=== PATIENT | female | born 1960 | race Caucasian/White ===

== ENCOUNTER 2023-01-01 11:37 | Emergency (ER) | payer MEDICAID, OTHER ==
[~2023-01-01] VITALS: Ht 165.1 cm; Wt 86.4 kg
[2023-01-01] MEDS ORDERED: APIX5TAB PO (11:56)
[2023-01-01] MEDS ORDERED: GABA-1216 PO (11:56)
[2023-01-01] MEDS ORDERED: FERR325T27 PO (11:56)
[2023-01-01] MEDS ORDERED: LISI-894 PO (11:56)
[2023-01-01] MEDS ORDERED: VANCOMYCIN 1GM/WATER(PEG/NADA) 200 ML IV ONE (14:30)
[2023-01-01 14:37] LABS: BASOPHILS % (AUTO) 0.3 % (0.0-2.0); EOSINOPHILS % (AUTO) 2.8 % (1.0-6.0); HEMATOCRIT 37.3 % (36-46); LYMPHOCYTES # (AUTO) 1.6 K/uL (1.0-4.8); LYMPHOCYTES % (AUTO) 19.1 % (22.0-44.0); MEAN CORPUSCULAR HEMOGLOBIN 30.9 pg (26.0-34.0); MEAN CORPUSCULAR HGB CONC 32.1 G/dL (31.0-37.0); MEAN CORPUSCULAR VOLUME 96 fL (80-100); MONOCYTES # (AUTO) 0.8 K/uL (0.1-1.0); MONOCYTES % (AUTO) 9.4 % (2.0-9.0); NEUTROPHILS # (AUTO) 5.6 K/uL (1.8-7.7); NEUTROPHILS % (AUTO) 68.4 % (40.0-70.0); PLATELET COUNT (AUTO) 160 K/uL (150-450); RED BLOOD CELL COUNT(AUTO) 3.87 MIL/uL (4.00-5.20); RED CELL DISTRIBUTION WIDTH 14.6 % (11.5-14.5)
[2023-01-01] MEDS ORDERED: ACETAMINOPHEN 325 MG TABLET PO ONE (14:45)
[2023-01-01 14:46] LABS: CALCIUM, TOTAL 9.5 mg/dL (8.8-10.5); CREATININE 1.09 mg/dL (0.60-1.30); POTASSIUM 4.2 mmol/L (3.5-5.1)
[2023-01-01 14:49] LABS: C-REACTIVE PROTEIN QUANT 1.21 mg/dL (0.00-0.30)
[2023-01-01] MEDS ORDERED: KETOROLAC TROMETHAMINE 30 MG/ML VIAL IVP ONE (15:45)
[2023-01-01 15:46] LABS: ERYTHROCYTE SEDIMENTATION RATE 35 MM/HR (0-20)
[2023-01-01] MEDS ORDERED: BACITRACIN 0.9 GM PACKET OINTMENT TP ONE (16:15)
[2023-01-01] MEDS ORDERED: BACTDSB PO (16:25)
[2023-01-01 16:37] VITALS: BP 130/86
== END 2023-01-01 17:36 | disposition home or self-care (01) ==
LOC: EMS 11:39
DX: T81.49XA Infection following a procedure, other surgical site, initial encounter (principal); I48.91 Unspecified atrial fibrillation; I10 Essential (primary) hypertension; Z98.890 Other specified postprocedural states
CPT/HCPCS: 99284; 96365; 96375; 80048; 85025; 85651; 86140; 87040; 36415; 73140; J1885; Q9967

== ENCOUNTER 2023-04-07 10:15 | Emergency (ER) | payer MEDICARE, OTHER ==
[~2023-04-07] VITALS: Ht 165.1 cm; Wt 80.9 kg
[~2023-04-07 10:15] MED LIST: APIX5TAB PO; BACTDSB PO; FERR325T27 PO; GABA-1216 PO; LISI-894 PO
[2023-04-07] MEDS ORDERED: SLOWK8 PO (10:29)
[2023-04-07] MEDS ORDERED: ALBU18HF12 IH (10:29)
[2023-04-07] MEDS ORDERED: CALC-462 PO (10:29)
[2023-04-07] MEDS ORDERED: IPRA3AMP24 NEB (10:29)
[2023-04-07] MEDS ORDERED: ISOS20TA85 PO (10:29)
[2023-04-07] MEDS ORDERED: IPRA4AER IH (10:29)
[2023-04-07] MEDS ORDERED: LISI40TA9 PO (10:29)
[2023-04-07] MEDS ORDERED: FURO20TA4 PO (10:29)
[2023-04-07] MEDS ORDERED: BUDE10.2 IH (10:29)
[2023-04-07] MEDS ORDERED: ARIP15TA27 PO (10:29)
[2023-04-07] MEDS ORDERED: FERR325T23 PO (10:29)
[2023-04-07] MEDS ORDERED: DOCU-412 PO (10:29)
[2023-04-07] MEDS ORDERED: SERT-439 PO (10:29)
[2023-04-07] MEDS ORDERED: FLUT16SP NASAL (10:29)
[2023-04-07] MEDS ORDERED: METO-416 PO (10:29)
[2023-04-07] MEDS ORDERED: GABA-534 PO (10:29)
[2023-04-07] MEDS ORDERED: IBUPROFEN 600 MG TABLET PO ONE (10:45)
[2023-04-07] MEDS ORDERED: HYDROCODONE/ACETAMINOPHEN 5-325 MG TABLET PO ONE (11:45)
[2023-04-07 12:33] VITALS: BP 142/93; PULSE 57; RESP 18; TEMP 97.9
[2023-04-08] MEDS ORDERED: PERCT PO (11:37)
== END 2023-04-07 12:40 | disposition home or self-care (01) ==
LOC: EMS 10:20
DX: S89.92XA Unspecified injury of left lower leg, initial encounter (principal); I10 Essential (primary) hypertension; Z98.890 Other specified postprocedural states; Z88.8 Allergy status to other drugs, medicaments and biological substances; W19.XXXA Unspecified fall, initial encounter; Y93.89 Activity, other specified; Y92.89 Other specified places as the place of occurrence of the external cause; Y99.8 Other external cause status
CPT/HCPCS: 29515; 99284; 73562-TC; 73610-TC; Z7502; Z7610

== ENCOUNTER 2023-04-09 14:18 | Emergency (ER) | payer MEDICARE, OTHER ==
[~2023-04-09] VITALS: Ht 165.1 cm; Wt 80.9 kg
[~2023-04-09 14:18] MED LIST changes: +ALBU18HF12 IH; +ARIP15TA27 PO; -BACTDSB PO; +BUDE10.2 IH; +CALC-462 PO; +DOCU-412 PO; +FERR325T23 PO; -FERR325T27 PO; +FLUT16SP NASAL; +FURO20TA4 PO; -GABA-1216 PO; +GABA-534 PO; +IPRA3AMP24 NEB; +IPRA4AER IH; +ISOS20TA85 PO; -LISI-894 PO; +LISI40TA9 PO; +METO-416 PO; +PERCT PO; +SERT-439 PO; +SLOWK8 PO
[2023-04-09 18:02] VITALS: BP 160/97; PULSE 69; RESP 18; TEMP 97.9
== END 2023-04-09 18:23 | disposition home or self-care (01) ==
LOC: EMS 14:40
DX: S82.892A Other fracture of left lower leg, initial encounter for closed fracture (principal); I48.91 Unspecified atrial fibrillation; I10 Essential (primary) hypertension; Z98.890 Other specified postprocedural states; Z88.8 Allergy status to other drugs, medicaments and biological substances; W22.8XXA Striking against or struck by other objects, initial encounter; Y93.89 Activity, other specified; Y92.89 Other specified places as the place of occurrence of the external cause; Y99.8 Other external cause status
CPT/HCPCS: 99281; Z7502

== ENCOUNTER 2023-04-26 18:11 | Emergency (ER) | payer MEDICARE, OTHER ==
[~2023-04-26] VITALS: Ht 160 cm; Wt 72.7 kg
[2023-04-26 18:15] VITALS: BP 162/99; PULSE 66; RESP 18; TEMP 98.4
[2023-04-26] MEDS ORDERED: METH5SOL3 PO (18:20)
== END 2023-04-26 20:23 | disposition home or self-care (01) ==
LOC: EMS 18:12
DX: B36.9 Superficial mycosis, unspecified (principal); B35.4 Tinea corporis; I10 Essential (primary) hypertension; Z98.890 Other specified postprocedural states; Z88.8 Allergy status to other drugs, medicaments and biological substances
CPT/HCPCS: 99284; Z7502

== ENCOUNTER 2023-04-30 09:37 | Inpatient (IN) | payer MEDICARE, OTHER ==
[~2023-04-30] VITALS: Ht 165.1 cm; Wt 74.5 kg
[~2023-04-30 09:37] MED LIST changes: -FERR325T23 PO; -IPRA4AER IH; +METH5SOL3 PO; -PERCT PO; -SLOWK8 PO
[2023-04-30 10:17] LABS: BASOPHILS % (AUTO) 0.4 % (0.0-2.0); EOSINOPHILS % (AUTO) 1.5 % (1.0-6.0); HEMATOCRIT 35.9 % (36-46); HEMOGLOBIN 11.9 g/dL (12.0-16.0); LYMPHOCYTES # (AUTO) 1.1 K/uL (1.0-4.8); LYMPHOCYTES % (AUTO) 16.6 % (22.0-44.0); MEAN CORPUSCULAR HEMOGLOBIN 31.2 pg (26.0-34.0); MEAN CORPUSCULAR HGB CONC 33.2 G/dL (31.0-37.0); MEAN CORPUSCULAR VOLUME 94 fL (80-100); MONOCYTES # (AUTO) 0.7 K/uL (0.1-1.0); MONOCYTES % (AUTO) 10.5 % (2.0-9.0); NEUTROPHILS # (AUTO) 4.9 K/uL (1.8-7.7); PLATELET COUNT (AUTO) 158 K/uL (150-450); RED BLOOD CELL COUNT(AUTO) 3.82 MIL/uL (4.00-5.20); RED CELL DISTRIBUTION WIDTH 13.6 % (11.5-14.5); WHITE BLOOD COUNT (AUTO) 6.9 K/uL (4.5-11.0)
[2023-04-30 10:25] LABS: CALCIUM, TOTAL 9.4 mg/dL (8.8-10.5); CREATININE 1.23 mg/dL (0.60-1.30); POTASSIUM 4.1 mmol/L (3.5-5.1)
[2023-04-30 10:31] LABS: ALBUMIN 3.4 g/dL (3.4-5.0); BILIRUBIN,TOTAL 0.8 mg/dL (0.1-1.0); TOTAL PROTEIN, SERUM 7.5 g/dL (6.4-8.2)
[2023-04-30 10:34] LABS: LACTIC ACID 0.9 mmol/L (0.4-2.0)
[2023-04-30] MEDS ORDERED: VANCOMYCIN HCL 1 GM in DEXTROSE 5%-WATER 250 ML IV ONE (10:45)
[2023-04-30] MEDS ORDERED: VANCOMYCIN 1GM/WATER(PEG/NADA) 200 ML IV ONE (10:45)
[2023-04-30] MEDS ORDERED: MAGNESIUM HYDROXIDE SUSPENSION 30 ML UDCUP PO PRN (11:45)
[2023-04-30] MEDS ORDERED: ACETAMINOPHEN 325 MG TABLET PO PRN (11:45)
[2023-04-30] MEDS ORDERED: SLOWK8 PO (11:57)
[2023-04-30] MEDS ORDERED: FERR325T23 PO (11:57)
[2023-04-30] MEDS ORDERED: UMEC62.5 IH (11:57)
[2023-04-30] MEDS ORDERED: IPRA4AER IH (11:57)
[2023-04-30 12:30] LABS: COVID AG,FIA SOURCE NASAL SWAB
[2023-04-30 12:51] LABS: SARS-COV2 (COVID) ANTIGEN,FIA Negative (Negative)
[2023-04-30 15:17] LABS: APPEARANCE,URINE CLEAR (CLEAR); BILIRUBIN,URINE NEGATIVE (NEGATIVE); COLOR,URINE LIGHT YELLOW (YELLOW); GLUCOSE, URINE (UA) NEGATIVE (NEGATIVE); KETONES,URINE NEGATIVE (NEGATIVE); LEUKOCYTE ESTERASE ,URINE MODERATE (NEGATIVE); NITRATE,URINE NEGATIVE (NEGATIVE); OCCULT BLOOD,URINE NEGATIVE (NEGATIVE); PH,URINE 5.5 (5.0-8.0); PROTEIN,URINE NEGATIVE (NEGATIVE); SPECIFIC GRAVITIY, URINE 1.012 (1.003-1.030); UROBILINOGEN,URINE <=1.0 mg/dL (<=1.0)
[2023-04-30 15:35] LABS: BACTERIA,URINE Many /HPF (None Seen); RBC,URINE 0-2 /HPF (0-2); SQUAMOUS EPITHELIAL CELL,UR Few /LPF (None Seen)
[2023-04-30] MEDS ORDERED: HEPARIN SODIUM,PORCINE 5,000 UNITS/ML VIAL SQ SCH (16:00)
[2023-04-30 17:02] VITALS: BP 132/84; PULSE 70; RESP 19; TEMP 98.6
[2023-04-30] MEDS ORDERED: HYDROCODONE/ACETAMINOPHEN 5-325 MG TABLET PO PRN (17:45)
[2023-04-30] MEDS: HYDROCODONE/ACETAMINOPHEN 5-325 MG TABLET PO PRN (18:04)
[2023-04-30 20:46] VITALS: BP 110/71; PULSE 73; RESP 20; TEMP 98.3
[2023-04-30] MEDS ORDERED: SODIUM CHLORIDE 0.9% 500 ML IV ONE (20:48)
[2023-04-30] MEDS: APIXABAN 5 MG TABLET PO SCH (20:49)
[2023-04-30] MEDS: METOPROLOL TARTRATE 50 MG TABLET PO SCH (20:49)
[2023-04-30] MEDS: VANCOMYCIN HCL 500 MG in DEXTROSE 5%-WATER 100 ML IV SCH (20:50)
[2023-05-01] VITALS (7 sets, daily range): BP systolic 120–151; BP diastolic 81–95; PULSE 62–83; RESP 17–20; TEMP 97.6–98.4
[2023-05-01] MEDS: HYDROCODONE/ACETAMINOPHEN 5-325 MG TABLET PO PRN ×2 (00:04→10:39)
[2023-05-01] MEDS ORDERED: IPRATROPIUM BROMIDE 0.5 MG/2.5 ML NEB SOLUTION NEB PRN (03:00)
[2023-05-01] MEDS ORDERED: ALBUTEROL SULFATE 2.5 MG/0.5 ML NEB SOLUTION NEB PRN (03:00)
[2023-05-01] MEDS ORDERED: MethylPREDNISolone SOD SUCC 40 MG/ML VIAL IVP SCH (03:30)
[2023-05-01 07:33] LABS: CALCIUM, TOTAL 9.2 mg/dL (8.8-10.5); CREATININE 1.04 mg/dL (0.60-1.30); POTASSIUM 4.3 mmol/L (3.5-5.1)
[2023-05-01] MEDS: VANCOMYCIN HCL 500 MG in DEXTROSE 5%-WATER 100 ML IV SCH ×2 (08:36→20:35)
[2023-05-01] MEDS: FAMOTIDINE 20 MG TABLET PO SCH (08:38)
[2023-05-01] MEDS: METOPROLOL TARTRATE 50 MG TABLET PO SCH ×2 (08:38→20:34)
[2023-05-01] MEDS: APIXABAN 5 MG TABLET PO SCH ×2 (08:38→23:02)
[2023-05-01] MEDS: METHADONE HCL 10 MG TABLET PO SCH (08:38)
[2023-05-01] MEDS: PredniSONE 20 MG TABLET PO SCH (11:28)
[2023-05-02 04:35] VITALS: BP 140/91; PULSE 72; RESP 18; TEMP 97.8
[2023-05-02 07:01] LABS: CALCIUM, TOTAL 9.8 mg/dL (8.8-10.5); CREATININE 0.99 mg/dL (0.60-1.30); POTASSIUM 4.2 mmol/L (3.5-5.1); VANCOMYCIN,RANDOM 16.5 mcg/mL (25.0-50.0)
[2023-05-02 08:05] VITALS: BP 135/92; PULSE 88; RESP 12; TEMP 97.8
[2023-05-02] MEDS: VANCOMYCIN HCL 500 MG in DEXTROSE 5%-WATER 100 ML IV SCH ×2 (08:22→19:59)
[2023-05-02] MEDS: METHADONE HCL 10 MG TABLET PO SCH (08:23)
[2023-05-02] MEDS: PredniSONE 20 MG TABLET PO SCH (08:23)
[2023-05-02] MEDS: FAMOTIDINE 20 MG TABLET PO SCH (08:24)
[2023-05-02] MEDS: APIXABAN 5 MG TABLET PO SCH ×2 (08:24→19:59)
[2023-05-02] MEDS: METOPROLOL TARTRATE 50 MG TABLET PO SCH ×2 (08:24→19:59)
[2023-05-02 08:59] LABS: BASOPHILS % (AUTO) 0.1 % (0.0-2.0); EOSINOPHILS % (AUTO) 0.4 % (1.0-6.0); HEMATOCRIT 36.8 % (36-46); LYMPHOCYTES # (AUTO) 1.6 K/uL (1.0-4.8); LYMPHOCYTES % (AUTO) 13.4 % (22.0-44.0); MEAN CORPUSCULAR HEMOGLOBIN 30.9 pg (26.0-34.0); MEAN CORPUSCULAR HGB CONC 32.5 G/dL (31.0-37.0); MEAN CORPUSCULAR VOLUME 95 fL (80-100); MONOCYTES # (AUTO) 0.8 K/uL (0.1-1.0); MONOCYTES % (AUTO) 6.5 % (2.0-9.0); NEUTROPHILS # (AUTO) 9.4 K/uL (1.8-7.7); NEUTROPHILS % (AUTO) 79.6 % (40.0-70.0); PLATELET COUNT (AUTO) 178 K/uL (150-450); RED BLOOD CELL COUNT(AUTO) 3.88 MIL/uL (4.00-5.20); RED CELL DISTRIBUTION WIDTH 13.5 % (11.5-14.5); WHITE BLOOD COUNT (AUTO) 11.8 K/uL (4.5-11.0)
[2023-05-02] MEDS: HYDROCODONE/ACETAMINOPHEN 5-325 MG TABLET PO PRN ×2 (13:46→20:03)
[2023-05-02 15:18] VITALS: BP 146/62; PULSE 64; RESP 18; TEMP 97.4
[2023-05-02 20:01] VITALS: BP 173/93; PULSE 86; RESP 20; TEMP 98.5
[2023-05-03] VITALS (7 sets, daily range): BP systolic 152–191; BP diastolic 98–122; PULSE 68–84; RESP 18–20; TEMP 97.6–98.2
[2023-05-03] MEDS: HYDROCODONE/ACETAMINOPHEN 5-325 MG TABLET PO PRN ×3 (05:09→21:48)
[2023-05-03 07:02] LABS: CREATININE 0.95 mg/dL (0.60-1.30); POTASSIUM 4.2 mmol/L (3.5-5.1)
[2023-05-03 08:14] LABS: BASOPHILS % (AUTO) 0.1 % (0.0-2.0); HEMATOCRIT 37.3 % (36-46); HEMOGLOBIN 12.1 g/dL (12.0-16.0); LYMPHOCYTES # (AUTO) 2.2 K/uL (1.0-4.8); LYMPHOCYTES % (AUTO) 22.6 % (22.0-44.0); MEAN CORPUSCULAR HEMOGLOBIN 30.7 pg (26.0-34.0); MEAN CORPUSCULAR HGB CONC 32.3 G/dL (31.0-37.0); MEAN CORPUSCULAR VOLUME 95 fL (80-100); MONOCYTES # (AUTO) 0.6 K/uL (0.1-1.0); MONOCYTES % (AUTO) 6.7 % (2.0-9.0); NEUTROPHILS # (AUTO) 6.6 K/uL (1.8-7.7); NEUTROPHILS % (AUTO) 69.6 % (40.0-70.0); PLATELET COUNT (AUTO) 189 K/uL (150-450); RED BLOOD CELL COUNT(AUTO) 3.93 MIL/uL (4.00-5.20); RED CELL DISTRIBUTION WIDTH 13.9 % (11.5-14.5); WHITE BLOOD COUNT (AUTO) 9.5 K/uL (4.5-11.0)
[2023-05-03] MEDS: FAMOTIDINE 20 MG TABLET PO SCH (10:02)
[2023-05-03] MEDS: PredniSONE 20 MG TABLET PO SCH (10:02)
[2023-05-03] MEDS: METOPROLOL TARTRATE 50 MG TABLET PO SCH ×2 (10:02→20:02)
[2023-05-03] MEDS: VANCOMYCIN HCL 500 MG in DEXTROSE 5%-WATER 100 ML IV SCH ×2 (10:03→20:02)
[2023-05-03] MEDS: APIXABAN 5 MG TABLET PO SCH ×2 (10:03→20:02)
[2023-05-03] MEDS: METHADONE HCL 10 MG TABLET PO SCH (10:03)
[2023-05-03] MEDS ORDERED: CLIN300C58 PO (17:24)
[2023-05-03] MEDS: LISINOPRIL 20 MG TABLET PO SCH (17:34)
[2023-05-04] MEDS: AmLODIPine BESYLATE 10 MG TABLET PO SCH ×2 (00:04→08:17)
[2023-05-04 04:27] VITALS: BP 163/97; PULSE 76; RESP 20; TEMP 97.5
[2023-05-04] MEDS: LISINOPRIL 20 MG TABLET PO SCH ×2 (04:53→08:17)
[2023-05-04 07:39] LABS: CALCIUM, TOTAL 10.3 mg/dL (8.8-10.5); CREATININE 1.02 mg/dL (0.60-1.30); POTASSIUM 4.9 mmol/L (3.5-5.1)
[2023-05-04 08:04] VITALS: BP 147/102; PULSE 66; RESP 20; TEMP 97.7
[2023-05-04] MEDS: METOPROLOL TARTRATE 50 MG TABLET PO SCH (08:17)
[2023-05-04] MEDS: FAMOTIDINE 20 MG TABLET PO SCH (08:17)
[2023-05-04] MEDS: METHADONE HCL 10 MG TABLET PO SCH (08:17)
[2023-05-04] MEDS: PredniSONE 20 MG TABLET PO SCH (08:17)
[2023-05-04] MEDS ORDERED: SODIUM CHLORIDE 0.9% 500 ML IV ONE (08:44)
[2023-05-04] MEDS: VANCOMYCIN HCL 500 MG in DEXTROSE 5%-WATER 100 ML IV SCH (08:48)
[2023-05-04] MEDS: APIXABAN 5 MG TABLET PO SCH (08:57)
[2023-05-04] MEDS ORDERED: APIX5TAB PO (14:09)
[2023-05-04] MEDS ORDERED: AMLO-258 PO (14:09)
[2023-05-04] MEDS ORDERED: PRED-554 PO (14:09)
[2023-05-04] MEDS ORDERED: ALBU2.5V39 NEB (14:09)
== END 2023-05-04 14:20 | disposition home or self-care (01) | DRG 602 ==
LOC: EMS 09:43 → AHU 13:09 → 5S 15:55 → 6S 05-01 17:55
PROVIDERS: ADMIT Internal Medicine; ATTEND Internal Medicine
DX: L03.114 Cellulitis of left upper limb (principal); J96.01 Acute respiratory failure with hypoxia; J44.1 Chronic obstructive pulmonary disease with (acute) exacerbation; I48.20 Chronic atrial fibrillation, unspecified; I10 Essential (primary) hypertension; F29 Unspecified psychosis not due to a substance or known physiological condition; F32.A Depression, unspecified; F19.10 Other psychoactive substance abuse, uncomplicated; Z20.822 Contact with and (suspected) exposure to COVID-19; Z79.899 Other long term (current) drug therapy; Z87.891 Personal history of nicotine dependence; Z88.1 Allergy status to other antibiotic agents; Z91.041 Radiographic dye allergy status
CPT/HCPCS: 71045; 73200; 80048; 80053; 80202; 81001; 83605; 85025; 87040; 87086; 87186; 93005; 93971; 99285; J2920; J3370; J7040; J7060; Q9967; 36415-L1; 36415-TC

== ENCOUNTER 2023-05-14 10:46 | Inpatient (IN) | payer MEDICARE, OTHER ==
[~2023-05-14] VITALS: Ht 152.4 cm; Wt 73.6 kg
[~2023-05-14 10:46] MED LIST changes: +ALBU2.5V39 NEB; +AMLO-258 PO; -ARIP15TA27 PO; +CLIN300C58 PO; +DOCU-400 PO; -DOCU-412 PO; -FLUT16SP NASAL; -GABA-534 PO; -IPRA3AMP24 NEB; -ISOS20TA85 PO; +PRED-554 PO; -SERT-439 PO
[2023-05-14] MEDS ORDERED: SERT-439 PO (10:51)
[2023-05-14] MEDS ORDERED: GABA-534 PO (10:51)
[2023-05-14] MEDS ORDERED: SODIUM CHLORIDE 0.9% 0 ML ONE (11:10)
[2023-05-14] MEDS ORDERED: IOHEXOL 350 MG/ML 100 ML VIAL ONE (11:10)
[2023-05-14 11:33] LABS: BASOPHILS % (AUTO) 0.2 % (0.0-2.0); HEMATOCRIT 38.1 % (36-46); HEMOGLOBIN 12.3 g/dL (12.0-16.0); LYMPHOCYTES # (AUTO) 1.3 K/uL (1.0-4.8); LYMPHOCYTES % (AUTO) 15.9 % (22.0-44.0); MEAN CORPUSCULAR HEMOGLOBIN 30.9 pg (26.0-34.0); MEAN CORPUSCULAR HGB CONC 32.3 G/dL (31.0-37.0); MEAN CORPUSCULAR VOLUME 96 fL (80-100); MONOCYTES # (AUTO) 0.6 K/uL (0.1-1.0); MONOCYTES % (AUTO) 7.3 % (2.0-9.0); NEUTROPHILS # (AUTO) 6.2 K/uL (1.8-7.7); NEUTROPHILS % (AUTO) 74.6 % (40.0-70.0); PLATELET COUNT (AUTO) 191 K/uL (150-450); RED BLOOD CELL COUNT(AUTO) 3.98 MIL/uL (4.00-5.20); RED CELL DISTRIBUTION WIDTH 14.4 % (11.5-14.5); WHITE BLOOD COUNT (AUTO) 8.3 K/uL (4.5-11.0)
[2023-05-14 11:40] LABS: CREATININE 1.45 mg/dL (0.60-1.30); POTASSIUM 4.5 mmol/L (3.5-5.1)
[2023-05-14 11:46] LABS: ALBUMIN 3.6 g/dL (3.4-5.0); BILIRUBIN,TOTAL 0.7 mg/dL (0.1-1.0); MAGNESIUM 2.2 mg/dL (1.80-2.40); TOTAL PROTEIN, SERUM 7.9 g/dL (6.4-8.2)
[2023-05-14 11:47] LABS: COVID AG,FIA SOURCE NASAL SWAB
[2023-05-14 11:53] LABS: TROPONIN I-HIGH SENSITIVITY 8 ng/L (<51)
[2023-05-14 11:55] LABS: LACTIC ACID 0.9 mmol/L (0.4-2.0)
[2023-05-14] MEDS ORDERED: ARIP15TA27 PO (11:59)
[2023-05-14] MEDS ORDERED: IPRA4AER IH (11:59)
[2023-05-14] MEDS ORDERED: FERR325T23 PO (11:59)
[2023-05-14] MEDS ORDERED: UMEC62.5 IH (11:59)
[2023-05-14] MEDS ORDERED: SLOWK8 PO (11:59)
[2023-05-14] MEDS ORDERED: VANCOMYCIN HCL 1.25 GM in DEXTROSE 5%-WATER 250 ML IV ONE (12:00)
[2023-05-14] MEDS ORDERED: CLINDAMYCIN 600 MG/D5% WATER 50 ML IV ONE (12:00)
[2023-05-14 12:10] LABS: SARS-COV2 (COVID) ANTIGEN,FIA Negative (Negative)
[2023-05-14] MEDS ORDERED: ACETAMINOPHEN 325 MG TABLET PO PRN ×2 (13:00→15:30)
[2023-05-14] MEDS ORDERED: 0.9% SODIUM CHLORIDE 10 ML SYRINGE IVP PRN (13:00)
[2023-05-14] MEDS ORDERED: ONDANSETRON HCL 4 MG/2 ML VIAL IVP PRN ×2 (13:00→15:30)
[2023-05-14] MEDS ORDERED: ALBUTEROL SULFATE HFA 90 MCG/PUFF 8 GM INHALER IH PRN (15:30)
[2023-05-14] MEDS ORDERED: BISACODYL 10 MG RECTAL RECTAL SUPPOSITORY PR PRN (15:30)
[2023-05-14] MEDS ORDERED: MORPHINE SULFATE 2 MG/ML SYRINGE IVP PRN (15:30)
[2023-05-14] MEDS ORDERED: ZOLPIDEM TARTRATE 5 MG TABLET PO PRN (15:30)
[2023-05-14] MEDS ORDERED: SODIUM CHLORIDE 0.9% 1,000 ML IV ONE (15:30)
[2023-05-14] MEDS ORDERED: MAGNESIUM HYDROXIDE SUSPENSION 30 ML UDCUP PO PRN (15:30)
[2023-05-14 15:59] VITALS: BP 129/71; PULSE 73; RESP 18; TEMP 98.2
[2023-05-14 16:45] VITALS: O2SAT 97
[2023-05-14 19:40] VITALS: BP 120/76; PULSE 60; RESP 18; TEMP 97.6
[2023-05-14] MEDS: APIXABAN 5 MG TABLET PO SCH (21:00)
[2023-05-14] MEDS: DOCUSATE SODIUM 100 MG CAPSULE PO SCH (21:00)
[2023-05-14] MEDS: HYDROCODONE/ACETAMINOPHEN 5-325 MG TABLET PO PRN (21:01)
[2023-05-14] MEDS: GABAPENTIN 400 MG CAPSULE PO SCH (21:01)
[2023-05-15 04:35] VITALS: BP 115/72; PULSE 61; RESP 18; TEMP 97.8
[2023-05-15 07:15] LABS: BILIRUBIN,TOTAL 0.6 mg/dL (0.1-1.0); CALCIUM, TOTAL 9.5 mg/dL (8.8-10.5); POTASSIUM 4.3 mmol/L (3.5-5.1)
[2023-05-15 07:17] LABS: BASOPHILS % (AUTO) 0.2 % (0.0-2.0); HEMATOCRIT 35.7 % (36-46); HEMOGLOBIN 11.5 g/dL (12.0-16.0); LYMPHOCYTES # (AUTO) 0.9 K/uL (1.0-4.8); LYMPHOCYTES % (AUTO) 15.3 % (22.0-44.0); MEAN CORPUSCULAR HEMOGLOBIN 31.1 pg (26.0-34.0); MEAN CORPUSCULAR HGB CONC 32.3 G/dL (31.0-37.0); MEAN CORPUSCULAR VOLUME 96 fL (80-100); MONOCYTES # (AUTO) 0.5 K/uL (0.1-1.0); MONOCYTES % (AUTO) 7.8 % (2.0-9.0); NEUTROPHILS # (AUTO) 4.5 K/uL (1.8-7.7); NEUTROPHILS % (AUTO) 73.7 % (40.0-70.0); PLATELET COUNT (AUTO) 143 K/uL (150-450); RED CELL DISTRIBUTION WIDTH 14.4 % (11.5-14.5); WHITE BLOOD COUNT (AUTO) 6.2 K/uL (4.5-11.0)
[2023-05-15 07:48] VITALS: BP 106/70; PULSE 60; RESP 20; TEMP 98.2
[2023-05-15] MEDS ORDERED: VANCOMYCIN 1GM/WATER(PEG/NADA) 200 ML IV SCH (08:00)
[2023-05-15] MEDS: GABAPENTIN 400 MG CAPSULE PO SCH ×2 (08:06→20:57)
[2023-05-15] MEDS: SERTRALINE HCL 50 MG TABLET PO SCH (08:06)
[2023-05-15] MEDS: ARIPiprazole 15 MG TABLET PO SCH (08:06)
[2023-05-15] MEDS: FUROSEMIDE 20 MG TABLET PO SCH (08:06)
[2023-05-15] MEDS: DOCUSATE SODIUM 100 MG CAPSULE PO SCH ×2 (08:07→20:56)
[2023-05-15] MEDS: POTASSIUM CHLORIDE 8 MEQ ER TABLET PO SCH (08:07)
[2023-05-15] MEDS: PANTOPRAZOLE SODIUM 40 MG DR TABLET PO SCH (08:07)
[2023-05-15] MEDS: APIXABAN 5 MG TABLET PO SCH ×2 (08:07→20:57)
[2023-05-15] MEDS: VANCOMYCIN HCL 750 MG in DEXTROSE 5%-WATER 250 ML IV SCH ×2 (08:07→20:56)
[2023-05-15] MEDS: AmLODIPine BESYLATE 10 MG TABLET PO SCH (08:07)
[2023-05-15] MEDS: FERROUS SULFATE 325 MG EC TABLET PO SCH (08:11)
[2023-05-15] MEDS ORDERED: SODIUM CHLORIDE 0.9% 500 ML IV ONE (08:16)
[2023-05-15] MEDS ORDERED: LISINOPRIL 20 MG TABLET PO SCH (09:00)
[2023-05-15 11:21] LABS: AMPHET/METH SCREEN,URINE NEGATIVE (NEGATIVE); BARBITURATE SCREEN, URINE NEGATIVE (NEGATIVE); BENZODIAZEPINES SCREEN,URINE NEGATIVE (NEGATIVE); CANNABINOID SCREEN,URINE NEGATIVE (NEGATIVE); COCAINE SCREEN,URINE NEGATIVE (NEGATIVE); METHADONE SCREEN, URINE POSITIVE (NEGATIVE); OPIATE SCREEN,URINE POSITIVE (NEGATIVE); PHENCYCLIDINE SCREEN,URINE NEGATIVE (NEGATIVE)
[2023-05-15 11:23] LABS: ALCOHOL, URINE DRUG SCREEN NEGATIVE (NEGATIVE)
[2023-05-15 15:06] VITALS: BP 110/68; PULSE 64; RESP 20; TEMP 98.2
[2023-05-15 19:00] VITALS: BP 90/66; PULSE 63; RESP 20; TEMP 98.7
[2023-05-15] MEDS: HYDROCODONE/ACETAMINOPHEN 5-325 MG TABLET PO PRN (20:57)
[2023-05-16 04:21] VITALS: BP 115/73; PULSE 61; RESP 20; TEMP 97.7
[2023-05-16 06:55] LABS: CALCIUM, TOTAL 9.5 mg/dL (8.8-10.5); CREATININE 0.98 mg/dL (0.60-1.30); POTASSIUM 4.5 mmol/L (3.5-5.1)
[2023-05-16] MEDS: HYDROCODONE/ACETAMINOPHEN 5-325 MG TABLET PO PRN ×2 (06:56→22:09)
[2023-05-16 07:22] VITALS: BP 101/69; PULSE 63; RESP 18; TEMP 97.9
[2023-05-16] MEDS: FUROSEMIDE 20 MG TABLET PO SCH (08:19)
[2023-05-16] MEDS: AmLODIPine BESYLATE 10 MG TABLET PO SCH (08:19)
[2023-05-16] MEDS: VANCOMYCIN HCL 750 MG in DEXTROSE 5%-WATER 250 ML IV SCH ×2 (08:19→20:21)
[2023-05-16] MEDS: POTASSIUM CHLORIDE 8 MEQ ER TABLET PO SCH (08:20)
[2023-05-16] MEDS: PANTOPRAZOLE SODIUM 40 MG DR TABLET PO SCH (08:20)
[2023-05-16] MEDS: GABAPENTIN 400 MG CAPSULE PO SCH ×2 (08:20→20:21)
[2023-05-16] MEDS: FERROUS SULFATE 325 MG EC TABLET PO SCH (08:20)
[2023-05-16] MEDS: SERTRALINE HCL 50 MG TABLET PO SCH (08:20)
[2023-05-16] MEDS: ARIPiprazole 15 MG TABLET PO SCH (08:21)
[2023-05-16] MEDS: DOCUSATE SODIUM 100 MG CAPSULE PO SCH ×2 (08:21→20:21)
[2023-05-16] MEDS: APIXABAN 5 MG TABLET PO SCH ×2 (08:21→20:21)
[2023-05-16] MEDS: METHADONE HCL 10 MG TABLET PO SCH (11:02)
[2023-05-16 11:05] VITALS: BP 114/88; PULSE 65; RESP 18
[2023-05-16 15:20] VITALS: BP 109/66; PULSE 56; RESP 18; TEMP 97.8
[2023-05-16 19:45] VITALS: BP 110/72; PULSE 69; RESP 18; TEMP 98.9
[2023-05-17 04:11] VITALS: BP 115/71; PULSE 66; RESP 18; TEMP 97.9
[2023-05-17 07:27] LABS: CALCIUM, TOTAL 9.7 mg/dL (8.8-10.5); CREATININE 1.04 mg/dL (0.60-1.30); POTASSIUM 4.6 mmol/L (3.5-5.1); VANCOMYCIN,RANDOM 24.8 mcg/mL (25.0-50.0)
[2023-05-17] MEDS: FERROUS SULFATE 325 MG EC TABLET PO SCH (08:11)
[2023-05-17] MEDS: ARIPiprazole 15 MG TABLET PO SCH (08:11)
[2023-05-17] MEDS: APIXABAN 5 MG TABLET PO SCH (08:11)
[2023-05-17] MEDS: PANTOPRAZOLE SODIUM 40 MG DR TABLET PO SCH (08:11)
[2023-05-17] MEDS: POTASSIUM CHLORIDE 8 MEQ ER TABLET PO SCH (08:11)
[2023-05-17] MEDS: DOCUSATE SODIUM 100 MG CAPSULE PO SCH (08:12)
[2023-05-17] MEDS: FUROSEMIDE 20 MG TABLET PO SCH (08:12)
[2023-05-17] MEDS: AmLODIPine BESYLATE 10 MG TABLET PO SCH (08:12)
[2023-05-17] MEDS: GABAPENTIN 400 MG CAPSULE PO SCH (08:12)
[2023-05-17] MEDS: SERTRALINE HCL 50 MG TABLET PO SCH (08:12)
[2023-05-17] MEDS: VANCOMYCIN HCL 750 MG in DEXTROSE 5%-WATER 250 ML IV SCH (08:13)
[2023-05-17 08:15] VITALS: BP 116/70; PULSE 61; RESP 18; TEMP 97.9
[2023-05-17] MEDS: METHADONE HCL 10 MG TABLET PO SCH (08:22)
[2023-05-17] MEDS ORDERED: LEVO-72 PO (10:00)
[2023-05-18] MEDS ORDERED: VANCOMYCIN 1GM/WATER(PEG/NADA) 200 ML IV SCH (08:00)
== END 2023-05-17 15:15 | disposition home health service (06) | DRG 383 ==
LOC: EMS 10:50 → 6N 13:30
PROVIDERS: ADMIT Internal Medicine; ATTEND Internal Medicine
DX: L03.114 Cellulitis of left upper limb (principal); N17.0 Acute kidney failure with tubular necrosis; F29 Unspecified psychosis not due to a substance or known physiological condition; I48.20 Chronic atrial fibrillation, unspecified; I10 Essential (primary) hypertension; J44.9 Chronic obstructive pulmonary disease, unspecified; L03.113 Cellulitis of right upper limb; Z20.822 Contact with and (suspected) exposure to COVID-19; I80.8 Phlebitis and thrombophlebitis of other sites; F32.A Depression, unspecified; F11.20 Opioid dependence, uncomplicated; Z79.899 Other long term (current) drug therapy; Z79.01 Long term (current) use of anticoagulants; Z88.1 Allergy status to other antibiotic agents
CPT/HCPCS: 80048; 80053; 80202; 80307; 83605; 83735; 83880; 84484; 85025; 87040; 93005; 93970; 99285; J3370; J3490; J7030; J7040; J7050; J7060; Q9967

== ENCOUNTER 2023-07-11 08:57 | Emergency (ER) | payer MEDICARE, OTHER ==
[~2023-07-11] VITALS: Ht 162.6 cm; Wt 77.7 kg
[~2023-07-11 08:57] MED LIST changes: +ARIP15TA27 PO; -CLIN300C58 PO; -DOCU-400 PO; +DOCU-412 PO; +FERR325T23 PO; +GABA-534 PO; +IPRA4AER IH; +LEVO-72 PO; -PRED-554 PO; +SERT-439 PO; +SLOWK8 PO; +UMEC62.5 IH
[2023-07-11 09:05] VITALS: TEMP 97.9
[2023-07-11] MEDS ORDERED: APIX5TAB PO (11:04)
[2023-07-11 13:45] VITALS: BP 150/115; PULSE 66; RESP 12
== END 2023-07-11 14:02 | disposition home or self-care (01) ==
LOC: EMS 08:57
DX: S09.90XA Unspecified injury of head, initial encounter (principal); J44.9 Chronic obstructive pulmonary disease, unspecified; F32.A Depression, unspecified; I10 Essential (primary) hypertension; Z98.890 Other specified postprocedural states; Z88.8 Allergy status to other drugs, medicaments and biological substances; W08.XXXA Fall from other furniture, initial encounter; Y93.89 Activity, other specified; Y92.89 Other specified places as the place of occurrence of the external cause; Y99.8 Other external cause status
CPT/HCPCS: 70450; 99284

== ENCOUNTER 2023-10-19 11:02 | Emergency (ER) | payer MEDICARE, OTHER ==
[~2023-10-19] VITALS: Ht 165.1 cm; Wt 78.2 kg
[~2023-10-19 11:02] MED LIST changes: +METH5SOL20 PO; -METH5SOL3 PO
[2023-10-19 11:20] VITALS: TEMP 98.7
[2023-10-19] MEDS ORDERED: CLIN-26 PO (13:27)
[2023-10-19] MEDS ORDERED: DOXY-354 PO (13:27)
[2023-10-19] MEDS ORDERED: ACET-3385 PO (13:27)
[2023-10-19] MEDS: SULFAMETHOX/TRIMETH DS 800-160 MG/TABLET PO ONE (13:27)
[2023-10-19] MEDS: CLINDAMYCIN HCL 150 MG CAPSULE PO ONE (13:27)
[2023-10-19] MEDS: ACETAMINOPHEN 500 MG TABLET PO ONE (13:28)
[2023-10-19 13:35] VITALS: BP 138/79; PULSE 70; RESP 20
== END 2023-10-19 13:37 | disposition home or self-care (01) ==
LOC: EMS 11:35
DX: L03.031 Cellulitis of right toe (principal); I10 Essential (primary) hypertension; I48.91 Unspecified atrial fibrillation; F32.A Depression, unspecified; J44.9 Chronic obstructive pulmonary disease, unspecified; Z88.0 Allergy status to penicillin
CPT/HCPCS: 99284; Z7502; Z7610

== ENCOUNTER 2023-12-24 12:54 | Emergency (ER) | payer MEDICARE, OTHER ==
[~2023-12-24] VITALS: Ht 160 cm; Wt 79.5 kg
[~2023-12-24 12:54] MED LIST changes: +ACET-3385 PO; -AMLO-258 PO; -LEVO-72 PO
[2023-12-24 13:06] VITALS: BP 97/69; PULSE 84; RESP 18; TEMP 97.9
[2023-12-24] MEDS ORDERED: HYDR-4062 PO (15:47)
[2023-12-24] MEDS ORDERED: SULF-261 PO (15:47)
[2023-12-24] MEDS ORDERED: ARIP15TA27 PO (15:47)
[2023-12-24] MEDS ORDERED: CEPH-558 PO (15:47)
== END 2023-12-24 16:17 | disposition home or self-care (01) ==
LOC: EMS 12:58
DX: L03.012 Cellulitis of left finger (principal); J44.9 Chronic obstructive pulmonary disease, unspecified; F32.A Depression, unspecified; I11.0 Hypertensive heart disease with heart failure; I50.9 Heart failure, unspecified; Z87.891 Personal history of nicotine dependence; Z98.890 Other specified postprocedural states; Z88.8 Allergy status to other drugs, medicaments and biological substances
CPT/HCPCS: 99283; Z7502

== ENCOUNTER 2023-12-25 12:35 | Emergency (ER) | payer MEDICARE, OTHER ==
[~2023-12-25] VITALS: Ht 165.1 cm; Wt 75.0 kg
[~2023-12-25 12:35] MED LIST changes: +CEPH-558 PO; +HYDR-4062 PO; +SULF-261 PO
[2023-12-25 12:45] VITALS: BP 146/91; PULSE 76; RESP 18; TEMP 98
[2023-12-25] MEDS: CEPHALEXIN MONOHYDRATE 500 MG CAPSULE PO ONE (15:19)
[2023-12-25] MEDS: SULFAMETHOX/TRIMETH DS 800-160 MG/TABLET PO ONE (15:19)
== END 2023-12-25 15:59 | disposition home or self-care (01) ==
LOC: EMS 12:35
DX: L02.512 Cutaneous abscess of left hand (principal); L03.012 Cellulitis of left finger; I11.0 Hypertensive heart disease with heart failure; I50.9 Heart failure, unspecified; J44.9 Chronic obstructive pulmonary disease, unspecified; F32.A Depression, unspecified; I48.91 Unspecified atrial fibrillation; Z87.891 Personal history of nicotine dependence; Z88.0 Allergy status to penicillin
CPT/HCPCS: 26010; 99283

== ENCOUNTER 2024-07-16 14:35 | Emergency (ER) | payer MEDICARE, OTHER ==
[~2024-07-16] VITALS: Ht 165.1 cm; Wt 186.6 kg
[2024-07-16 15:12] LABS: BASOPHILS % (AUTO) 0.6 % (0.0-2.0); EOSINOPHILS % (AUTO) 3.1 % (1.0-6.0); HEMATOCRIT 40.7 % (36-46); HEMOGLOBIN 12.9 g/dL (12.0-16.0); LYMPHOCYTES # (AUTO) 1.6 K/uL (1.0-4.8); LYMPHOCYTES % (AUTO) 16.4 % (22.0-44.0); MEAN CORPUSCULAR HEMOGLOBIN 30.3 pg (26.0-34.0); MEAN CORPUSCULAR HGB CONC 31.6 G/dL (31.0-37.0); MEAN CORPUSCULAR VOLUME 96 fL (80-100); MONOCYTES # (AUTO) 0.7 K/uL (0.1-1.0); MONOCYTES % (AUTO) 7.5 % (2.0-9.0); NEUTROPHILS # (AUTO) 7.1 K/uL (1.8-7.7); NEUTROPHILS % (AUTO) 72.4 % (40.0-70.0); PLATELET COUNT (AUTO) 141 K/uL (150-450); RED BLOOD CELL COUNT(AUTO) 4.24 MIL/uL (4.00-5.20); RED CELL DISTRIBUTION WIDTH 15.6 % (11.5-14.5); WHITE BLOOD COUNT (AUTO) 9.8 K/uL (4.5-11.0)
[2024-07-16] MEDS: SODIUM CHLORIDE 0.9% 2,700 ML IV ONE (15:20)
[2024-07-16] MEDS: CefTRIAXone 1 GM/DEXTROSE 50 ML IV ONE (15:21)
[2024-07-16 15:22] LABS: LIPASE 24 U/L (16-77)
[2024-07-16 15:24] VITALS: TEMP 97.8
[2024-07-16 15:29] LABS: CALCIUM, TOTAL 9.5 mg/dL (8.8-10.5); CREATININE 1.49 mg/dL (0.60-1.30); POTASSIUM 4.2 mmol/L (3.5-5.1)
[2024-07-16 15:30] LABS: TROPONIN I-HIGH SENSITIVITY 15 ng/L (<51)
[2024-07-16 15:33] LABS: PROTHROMBIN TIME 10.6 SEC (9.4-11.6)
[2024-07-16 15:36] LABS: ALBUMIN 3.6 g/dL (3.4-5.0); CHOL/HDL RATIO 1.6 (3.9-5.7); TOTAL PROTEIN, SERUM 7.6 g/dL (6.4-8.2)
[2024-07-16] MEDS: ONDANSETRON HCL 4 MG/2 ML VIAL IVP ONE (15:59)
[2024-07-16] MEDS: HYDROmorphone HCL 2 MG/ML SYRINGE IVP ONE (15:59)
[2024-07-16 16:26] LABS: APPEARANCE,URINE CLEAR (CLEAR); BILIRUBIN,URINE NEGATIVE (NEGATIVE); COLOR,URINE COLORLESS (YELLOW); GLUCOSE, URINE (UA) 300-500 mg/dL (NEGATIVE); KETONES,URINE NEGATIVE (NEGATIVE); LEUKOCYTE ESTERASE ,URINE NEGATIVE (NEGATIVE); NITRATE,URINE NEGATIVE (NEGATIVE); OCCULT BLOOD,URINE NEGATIVE (NEGATIVE); PH,URINE 6.5 (5.0-8.0); PH,URINE DRUG SCREEN 6.5 (5.0-8.0); PROTEIN,URINE NEGATIVE (NEGATIVE); SPECIFIC GRAVITIY, URINE 1.007 (1.003-1.030); UROBILINOGEN,URINE <=1.0 mg/dL (<=1.0)
[2024-07-16 16:36] LABS: BACTERIA,URINE Rare /HPF (None Seen); RBC,URINE None Seen /HPF (0-2); WBC,URINE 0-2 /HPF (0-5)
[2024-07-16 16:52] LABS: ALCOHOL, URINE DRUG SCREEN NEGATIVE (NEGATIVE); AMPHET/METH SCREEN,URINE NEGATIVE (NEGATIVE); BARBITURATE SCREEN, URINE NEGATIVE (NEGATIVE); BENZODIAZEPINES SCREEN,URINE NEGATIVE (NEGATIVE); CANNABINOID SCREEN,URINE NEGATIVE (NEGATIVE); COCAINE SCREEN,URINE NEGATIVE (NEGATIVE); METHADONE SCREEN, URINE POSITIVE (NEGATIVE); OPIATE SCREEN,URINE NEGATIVE (NEGATIVE); PHENCYCLIDINE SCREEN,URINE NEGATIVE (NEGATIVE)
[2024-07-16] MEDS ORDERED: ACET-66 PO (20:54)
[2024-07-16] MEDS ORDERED: GABA-1201 PO (20:54)
[2024-07-16] MEDS ORDERED: EMPA10TA3 PO (20:54)
[2024-07-16] MEDS ORDERED: CLIN300C58 PO (20:54)
[2024-07-16 21:09] VITALS: BP 123/72; PULSE 76; RESP 16; O2SAT 95
[2024-07-16 22:00] LABS: LACTIC ACID 0.8 mmol/L (0.4-2.0)
== END 2024-07-16 22:01 | disposition home or self-care (01) ==
LOC: EMS 14:35
DX: I63.9 Cerebral infarction, unspecified (principal); M41.9 Scoliosis, unspecified; I48.91 Unspecified atrial fibrillation; I13.0 Hypertensive heart and chronic kidney disease with heart failure and stage 1 through stage 4 chronic kidney disease, or unspecified chronic kidney disease; N18.9 Chronic kidney disease, unspecified; G89.4 Chronic pain syndrome; I50.9 Heart failure, unspecified; F32.A Depression, unspecified; J44.9 Chronic obstructive pulmonary disease, unspecified; Z87.891 Personal history of nicotine dependence; Z95.1 Presence of aortocoronary bypass graft; Z95.2 Presence of prosthetic heart valve; Z88.0 Allergy status to penicillin
CPT/HCPCS: 99285; 70490; 96365; 96375; 71045; 80061; 80053; 81001; 83605; 83690; 84484; 85025; 85610; 87040; 36415; 82948; 93005; 80307; 84145; 70450; J0696; J1171; J2405

== ENCOUNTER 2024-08-06 10:04 | Emergency (ER) | payer MEDICARE, OTHER ==
[~2024-08-06] VITALS: Ht 165.1 cm; Wt 78.0 kg
[~2024-08-06 10:04] MED LIST changes: +ACET-66 PO; -CEPH-558 PO; +CLIN300C58 PO; +EMPA10TA3 PO; +GABA-1201 PO; -SULF-261 PO
[2024-08-06 10:15] VITALS: TEMP 98.8
[2024-08-06] MEDS ORDERED: BACI28.410 TP (11:20)
[2024-08-06] MEDS ORDERED: DOXY-354 PO (11:20)
[2024-08-06] MEDS: DOXYCYCLINE HYCLATE 100 MG TABLET PO ONE (12:02)
[2024-08-06 12:30] VITALS: BP 111/71; PULSE 87; RESP 18; O2SAT 96
== END 2024-08-06 12:49 | disposition home or self-care (01) ==
LOC: EMS 10:04
DX: L02.01 Cutaneous abscess of face (principal); I11.0 Hypertensive heart disease with heart failure; I50.9 Heart failure, unspecified; J44.9 Chronic obstructive pulmonary disease, unspecified; F32.A Depression, unspecified; Z91.041 Radiographic dye allergy status; Z88.0 Allergy status to penicillin; Z79.01 Long term (current) use of anticoagulants; Z79.51 Long term (current) use of inhaled steroids; Z79.899 Other long term (current) drug therapy
CPT/HCPCS: 10060; 99283

== ENCOUNTER 2024-08-08 11:27 | Emergency (ER) | payer MEDICARE, OTHER ==
[~2024-08-08] VITALS: Ht 162.6 cm; Wt 78.2 kg
[~2024-08-08 11:27] MED LIST changes: -ACET-3385 PO; +BACI28.410 TP; -CLIN300C58 PO; +DOXY-354 PO; -GABA-534 PO
[2024-08-08 11:39] VITALS: TEMP 98.9
[2024-08-08 13:20] VITALS: BP 125/71; PULSE 77; RESP 18; O2SAT 96
== END 2024-08-08 13:38 | disposition home or self-care (01) ==
LOC: EMS 12:19
DX: L02.01 Cutaneous abscess of face (principal); I11.0 Hypertensive heart disease with heart failure; I50.9 Heart failure, unspecified; J44.9 Chronic obstructive pulmonary disease, unspecified; F32.A Depression, unspecified; Z88.0 Allergy status to penicillin; Z91.041 Radiographic dye allergy status; Z79.01 Long term (current) use of anticoagulants; Z79.51 Long term (current) use of inhaled steroids; Z79.899 Other long term (current) drug therapy
CPT/HCPCS: 99281; Z7502

== ENCOUNTER 2024-09-06 11:13 | Emergency (ER) | payer MEDICARE, OTHER ==
[~2024-09-06] VITALS: Ht 165.1 cm; Wt 78.2 kg
[~2024-09-06 11:13] MED LIST changes: -ACET-66 PO; -ALBU2.5V39 NEB; -EMPA10TA3 PO; -HYDR-4062 PO
[2024-09-06 11:21] VITALS: TEMP 97.7
[2024-09-06] MEDS ORDERED: METH5SOL20 PO (11:27)
[2024-09-06] MEDS: LIDOCAINE 5% TRANSDERMAL PATCH TD ONE (14:43)
[2024-09-06] MEDS: ACETAMINOPHEN 500 MG TABLET PO ONE (14:43)
[2024-09-06] MEDS: METHOCARBAMOL 500 MG TABLET PO ONE (14:43)
[2024-09-06 16:24] LABS: BASOPHILS % (AUTO) 0.5 % (0.0-2.0); HEMATOCRIT 36.5 % (36-46); HEMOGLOBIN 11.5 g/dL (12.0-16.0); LYMPHOCYTES # (AUTO) 1.6 K/uL (1.0-4.8); MEAN CORPUSCULAR HEMOGLOBIN 30.9 pg (26.0-34.0); MEAN CORPUSCULAR HGB CONC 31.4 G/dL (31.0-37.0); MEAN CORPUSCULAR VOLUME 98 fL (80-100); MONOCYTES # (AUTO) 0.8 K/uL (0.1-1.0); MONOCYTES % (AUTO) 12.9 % (2.0-9.0); NEUTROPHILS # (AUTO) 3.2 K/uL (1.8-7.7); NEUTROPHILS % (AUTO) 55.6 % (40.0-70.0); PLATELET COUNT (AUTO) 184 K/uL (150-450); RED BLOOD CELL COUNT(AUTO) 3.72 MIL/uL (4.00-5.20); RED CELL DISTRIBUTION WIDTH 15.6 % (11.5-14.5); WHITE BLOOD COUNT (AUTO) 5.8 K/uL (4.5-11.0)
[2024-09-06 16:30] VITALS: BP 126/76; PULSE 68; RESP 18; O2SAT 94
[2024-09-06 16:36] LABS: ANION GAP 6 mmol/L (8-16); CALCIUM, TOTAL 9.2 mg/dL (8.8-10.5); CARBON DIOXIDE 32 mmol/L (22-29); CHLORIDE 103 mmol/L (98-107); CREATININE 1.98 mg/dL (0.60-1.30); GLOMERULAR FILTR. RATE CALC 25 mL/min (>60); GLUCOSE,RANDOM 82 mg/dL (70-110); POTASSIUM 5.1 mmol/L (3.5-5.1); SODIUM SERUM 141 mmol/L (136-145); UREA NITROGEN, BLOOD 43 mg/dL (7-18)
[2024-09-06 16:42] LABS: TROPONIN I-HIGH SENSITIVITY 11 ng/L (<51)
[2024-09-06 16:52] LABS: B-TYPE NATRIURETIC PEPTIDE 132 pg/mL (0-100)
== END 2024-09-06 17:30 | disposition home or self-care (01) ==
LOC: EMS 11:13
DX: S09.90XA Unspecified injury of head, initial encounter (principal); F32.A Depression, unspecified; I11.0 Hypertensive heart disease with heart failure; I48.91 Unspecified atrial fibrillation; I50.9 Heart failure, unspecified; J44.9 Chronic obstructive pulmonary disease, unspecified; M41.9 Scoliosis, unspecified; Z79.01 Long term (current) use of anticoagulants; Z79.51 Long term (current) use of inhaled steroids; Z79.899 Other long term (current) drug therapy; Z88.0 Allergy status to penicillin; Z91.041 Radiographic dye allergy status; Z95.0 Presence of cardiac pacemaker; Z95.1 Presence of aortocoronary bypass graft; Z95.2 Presence of prosthetic heart valve; Z87.891 Personal history of nicotine dependence; W22.03XA Walked into furniture, initial encounter; Y93.89 Activity, other specified; Y92.89 Other specified places as the place of occurrence of the external cause; Y99.8 Other external cause status
CPT/HCPCS: 70450; 72125; 80048; 83880; 84484; 85025; 93005; 99285

== ENCOUNTER 2024-10-22 00:58 | Emergency (ER) | payer OTHER ==
[~2024-10-22] VITALS: Ht 165.1 cm; Wt 80.0 kg
[~2024-10-22 00:58] MED LIST changes: -BACI28.410 TP; -DOXY-354 PO; -FERR325T23 PO; -SERT-439 PO; -SLOWK8 PO; -UMEC62.5 IH
[2024-10-22 01:05] VITALS: BP 134/79; PULSE 74; RESP 18; TEMP 98.4; O2SAT 95
[2024-10-22] MEDS ORDERED: GUAIFDM PO (01:19)
[2024-10-22] MEDS ORDERED: AZIT250T9 PO (01:19)
[2024-10-22] MEDS: AZITHROMYCIN 500 MG TABLET PO ONE (01:26)
[2024-10-22] MEDS: GuaiFENesin/D-METHORPHAN [SUGAR-FREE] 200-20MG/10 ML SYRUP UDCUP PO ONE (01:26)
== END 2024-10-22 01:49 | disposition home or self-care (01) ==
LOC: EMS 00:58
DX: J44.0 Chronic obstructive pulmonary disease with (acute) lower respiratory infection (principal); J18.9 Pneumonia, unspecified organism; I11.0 Hypertensive heart disease with heart failure; I50.9 Heart failure, unspecified; F32.A Depression, unspecified; Z79.01 Long term (current) use of anticoagulants; Z88.0 Allergy status to penicillin; Z91.041 Radiographic dye allergy status; Z79.51 Long term (current) use of inhaled steroids; Z87.891 Personal history of nicotine dependence; Z79.899 Other long term (current) drug therapy
CPT/HCPCS: 99283; J0456